=== PATIENT | female | born 1995 ===

== ENCOUNTER 2018-10-15 16:21 | Inpatient (IN) | payer MEDICAID ==
[2018-10-15] MEDS ORDERED: Sodium Chloride 0.9% 1,000 ML IV STA ×2 (17:09→21:30)
[2018-10-15 17:27] LABS: BASO # 0.1 K/uL (0.0-0.2); BASO % 0.5 % (0.0-2.0); EOS % 0.2 % (0.0-4.0); HEMOGLOBIN 12.7 g/dL (11.0-16.0); LYMPH # 1.5 K/uL (1.0-4.3); LYMPH % 13.8 % (20.0-40.0); MEAN CORPUSCULAR HEMOGLOBIN 23.8 pg (27.0-31.0); MEAN CORPUSCULAR HGB CONC 31.4 g/dL (33.0-37.0); MEAN PLATELET VOLUME 9.8 fL (7.2-11.7); MONO # 0.6 K/uL (0.0-0.8); MONO % 6.1 % (0.0-10.0); NEUT # 8.4 K/uL (1.8-7.0); NEUT % 79.4 % (50.0-75.0); RBC 5.32 Mil/uL (3.80-5.20); RED CELL DISTRIBUTION WIDTH 16.9 % (11.5-14.5); WHITE BLOOD COUNT 10.6 K/uL (4.8-10.8)
[2018-10-15 17:34] LABS: SQUAMOUS EPITHIAL 2 /hpf (0-5); URINE BACTERIA FEW (<OCC); URINE BILIRUBIN NEGATIVE (NEGATIVE); URINE BLOOD NEGATIVE (NEGATIVE); URINE CLARITY Hazy (Clear); URINE COLOR Yellow (YELLOW); URINE GLUCOSE (UA) NORMAL (Normal); URINE LEUKOCYTE ESTERASE 1+ Leu/uL (Negative); URINE PROTEIN NEGATIVE (NEGATIVE); URINE UROBILINOGEN NORMAL mg/dL (0.2-1.0)
[2018-10-15 17:38] LABS: HCG,QUALITATIVE URINE NEGATIVE (NEGATIVE)
[2018-10-15 17:40] LABS: ALB/GLOB RATIO 1.3 (1.0-2.1); ALBUMIN 5.1 g/dL (3.5-5.0); ALT/SGPT 958 U/L (9-52); AST/SGOT 618 U/L (14-36); BLOOD UREA NITROGEN 5 mg/dL (7-17); CALCIUM 9.9 mg/dl (8.6-10.4); GFR NON-AFRICAN AMERICAN > 60
[2018-10-15 18:06] LABS: LIPASE 19741 U/L (23-300)
--- NOTE | 2018-10-15 19:02 | C.PDOC ---
History Of Present Illness 23 year old female presents to the emergency department with complaints of upper abdominal pain and vomiting for the last three days. Patient denies fever and diarrhea. Patient is not actively vomiting in the ED. <Florence Marques - Last Filed: 10/15/18 19:09> History Per: Patient History/Exam Limitations: no limitations Onset/Duration Of Symptoms: Days (3) Current Symptoms Are (Timing): Still Present Location Of Pain/Discomfort: Other (upper abdomen) Associated Symptoms: Vomiting, Other (abdominal pain). denies: Fever, Diarrhea <Florence Marques - Last Filed: 10/15/18 19:09> <Robert Marie - Last Filed: 10/15/18 22:52> Time Seen by Provider: 10/15/18 16:34 Chief Complaint (Nursing): Abdominal Pain Past Medical History Reviewed: Historical Data, Nursing Documentation, Vital Signs Vital Signs: Last Vital Signs Temp 98.9 F 10/15/18 16:29 Pulse 89 10/15/18 16:29 Resp 18 10/15/18 16:29 BP 108/79 10/15/18 16:29 Pulse Ox 100 10/15/18 16:29 - Medical History PMH: No Chronic Diseases Surgical History: No Surg Hx Family History: States: No Known Family Hx - Social History Hx Alcohol Use: Yes Hx Substance Use: No - Immunization History Hx Tetanus Toxoid Vaccination: Yes Hx Influenza Vaccination: Yes Hx Pneumococcal Vaccination: No <Florence Marques - Last Filed: 10/15/18 19:09> Vital Signs: Last Vital Signs Temp 98.7 F 10/15/18 20:00 Pulse 69 10/15/18 20:00 Resp 14 10/15/18 20:00 BP 98/63 L 10/15/18 20:00 Pulse Ox 100 10/15/18 20:00 <Robert Marie - Last Filed: 10/15/18 22:52> Review Of Systems Except As Marked, All Systems Reviewed And Found Negative. Constitutional: Negative for: Fever Gastrointestinal: Positive for: Vomiting, Abdominal Pain. Negative for: Diarrhea <Florence Marques - Last Filed: 10/15/18 19:09> Physical Exam - Physical Exam Appears: Non-toxic, No Acute Distress Skin: Normal Color, Warm, Dry Head: Atraumatic, Normacephalic Eye(s): bilateral: Normal Inspection, PERRL, EOMI Oral Mucosa: Moist Neck: Normal, Supple Cardiovascular: Rhythm Regular, No Murmur Respiratory: Normal Breath Sounds, No Rales, No Rhonchi, No Wheezing Gastrointestinal/Abdominal: Soft, Tenderness (to epigastric area), No Guarding, No Rebound Extremity: Normal ROM Neurological/Psych: Oriented x3, Normal Speech, Normal Cognition <Florence Marques - Last Filed: 10/15/18 19:09> ED Course And Treatment - Laboratory Results Result Diagrams: 10/15/18 17:24 10/15/18 17:24 Lab Results: Total Bilirubin 3.1 mg/dL (0.2-1.3) H 10/15/18 17:24 AST 618 U/L (14-36) H 10/15/18 17:24 ALT 958 U/L (9-52) H 10/15/18 17:24 Alkaline Phosphatase 202 U/L (38-126) H 10/15/18 17:24 Total Protein 9.2 g/dL (6.3-8.3) H 10/15/18 17:24 Albumin 5.1 g/dL (3.5-5.0) H 10/15/18 17:24 Globulin 4.1 gm/dL (2.2-3.9) H 10/15/18 17:24 Albumin/Globulin Ratio 1.3 (1.0-2.1) 10/15/18 17:24 Lipase 00680 U/L (23-300) H 10/15/18 17:24 Urine Color Yellow (YELLOW) 10/15/18 17:24 Urine Clarity Hazy (Clear) 10/15/18 17:24 Urine pH 6.0 (5.0-8.0) 10/15/18 17:24 Ur Specific [place] 1.001 (1.003-1.030) L 10/15/18 17:24 Urine Protein Negative mg/dL (NEGATIVE) 10/15/18 17:24 Urine Glucose (UA) Normal mg/dL (Normal) 10/15/18 17:24 Urine Ketones Negative mg/dL (NEGATIVE) 10/15/18 17:24 Urine Blood Negative (NEGATIVE) 10/15/18 17:24 Urine Nitrate Negative (NEGATIVE) 10/15/18 17:24 Urine Bilirubin Negative (NEGATIVE) 10/15/18 17:24 Urine Urobilinogen Normal mg/dL (0.2-1.0) 10/15/18 17:24 Ur Leukocyte Esterase 1+ Gen[place]/uL (Negative) H 10/15/18 17:24 Urine WBC (Auto) 5 /hpf (0-5) 10/15/18 17:24 Urine RBC (Auto) 1 /hpf (0-3) 10/15/18 17:24 Ur Squamous Epith Cells 2 /hpf (0-5) 10/15/18 17:24 Urine Bacteria Few (<OCC) H 10/15/18 17:24 Urine HCG, Qual Negative (NEGATIVE) 10/15/18 17:24 Urine HCG, Qual Negative (NEGATIVE) 10/15/18 17:24 O2 Sat by Pulse Oximetry: 100 (RA) Pulse Ox Interpretation: Normal <Florence Marques - Last Filed: 10/15/18 19:09> - Laboratory Results Result Diagrams: 10/15/18 17:24 10/15/18 17:24 Lab Results: Total Bilirubin 3.1 mg/dL (0.2-1.3) H 10/15/18 17:24 AST 618 U/L (14-36) H 10/15/18 17:24 ALT 958 U/L (9-52) H 10/15/18 17:24 Alkaline Phosphatase 202 U/L (38-126) H 10/15/18 17:24 Total Protein 9.2 g/dL (6.3-8.3) H 10/15/18 17:24 Albumin 5.1 g/dL (3.5-5.0) H 10/15/18 17:24 Globulin 4.1 gm/dL (2.2-3.9) H 10/15/18 17:24 Albumin/Globulin Ratio 1.3 (1.0-2.1) 10/15/18 17:24 Lipase 82041 U/L (23-300) H 10/15/18 17:24 Urine Color Yellow (YELLOW) 10/15/18 17:24 Urine Clarity Hazy (Clear) 10/15/18 17:24 Urine pH 6.0 (5.0-8.0) 10/15/18 17:24 Ur Specific [place] 1.001 (1.003-1.030) L 10/15/18 17:24 Urine Protein Negative mg/dL (NEGATIVE) 10/15/18 17:24 Urine Glucose (UA) Normal mg/dL (Normal) 10/15/18 17:24 Urine Ketones Negative mg/dL (NEGATIVE) 10/15/18 17:24 Urine Blood Negative (NEGATIVE) 10/15/18 17:24 Urine Nitrate Negative (NEGATIVE) 10/15/18 17:24 Urine Bilirubin Negative (NEGATIVE) 10/15/18 17:24 Urine Urobilinogen Normal mg/dL (0.2-1.0) 10/15/18 17:24 Ur Leukocyte Esterase 1+ [place]/uL (Negative) H 10/15/18 17:24 Urine WBC (Auto) 5 /hpf (0-5) 10/15/18 17:24 Urine RBC (Auto) 1 /hpf (0-3) 10/15/18 17:24 Ur Squamous Epith Cells 2 /hpf (0-5) 10/15/18 17:24 Urine Bacteria Few (<OCC) H 10/15/18 17:24 Urine HCG, Qual Negative (NEGATIVE) 10/15/18 17:24 Urine HCG, Qual Negative (NEGATIVE) 10/15/18 17:24 - CT Scan/US US abdomen Other Rad Studies (CT/US): Read By Radiologist, Radiology Report Reviewed CT/US Interpretation: Impression: Numerous gallstones present within the gallbladder. Slightly prominent distal common bile duct. Clinical correlation advised. <Robert Marie - Last Filed: 10/15/18 22:52> Medical Decision Making Medical Decision Making: Plan: CMP Lipase CBC Protonix 40mg IVP NaCl IV Fluids Zofran 4mg IVP HCG Qualitative Urine US Abdomen Patient with high lipase and elevated liver function. <Florence Marques - Last Filed: 10/15/18 19:09> Medical Decision Making: SAMM chatman. Dr. Garcia accepts patient to hospitalist service. <Robert Marie - Last Filed: 10/15/18 22:52> Disposition - Disposition Disposition Time: 19:09 <Florence Marques - Last Filed: 10/15/18 19:09> <Robert Marie - Last Filed: 10/15/18 22:52> - Disposition Disposition: HOSPITALIZED Condition: FAIR - Clinical Impression Clinical Impression: Abdominal pain, Pancreatitis, Gallstone pancreatitis - PA / CHEMICAL TEST ENGINEER / Resident Statement MD/DO has reviewed & agrees with the documentation as recorded. - Scribe Statement The provider has reviewed the documentation as recorded by the Scribe (Felton Thompson) All medical record entries made by the Scribe were at my direction and pe rsonally dictated by me. I have reviewed the chart and agree that the record accurately reflects my personal performance of the history, physical exam, medical decision making, and the department course for this patient. I have also personally directed, reviewed, and agree with the discharge instructions and disposition. <Florence Marques - Last Filed: 10/15/18 19:09> Physician Patient Turnover Patient Signed Over To: Robert Marie Handoff Comments: pending abdominal US and dispo <Florence Marques - Last Filed: 10/15/18 19:09>
--- NOTE | 2018-10-15 21:27 | CP.PCM.HP ---
<CresencioRichie - Last Filed: 10/16/18 00:54> History of Present Illness - History of Present Illness History of Present Illness: PGY-1 History and Physical [address] Dr[address] Garcia Patient is a 23 year old female with no past significant medical history presenting to ED with worsening upper abdominal pain and vomiting for the past 3 days. Pain is located primarily in the epigastric and RUQ regions, worsened with food, and associated with nausea and NBNB vomiting. No fevers/chills, headaches, dizziness, chest pain, palpitations, sob, cough, diarrhea/constipation, dysuria. 12 pt ROS reviewed and otherwise negative. PMHx: denies PSHx: denies Allergies: NKDA Home Meds: denies Social Hx: social drinker, denies any tobacco or illicit drug use Family Hx: denies PMD: none Present on Admission - Present on Admission Any Indicators Present on Admission: No Review of Systems - Review of Systems All systems: reviewed and no additional remarkable complaints except Review of Systems: as per HPI Past Patient History - Past Social History Smoking Status: Never Smoked - PSYCHIATRIC Hx Substance Use: No - SURGICAL HISTORY Hx Surgeries: No - ANESTHESIA Hx Anesthesia: No Meds Allergies/Adverse Reactions: Allergies Allergy/AdvReac Type Severity Reaction Status Date / Time No Known Allergies Allergy Unverified 10/15/18 16:31 Physical Exam - Constitutional Appears: Non-toxic, No Acute Distress - Head Exam Head Exam: ATRAUMATIC, NORMAL INSPECTION, NORMOCEPHALIC - Eye Exam Eye Exam: EOMI, Normal appearance, PERRL Pupil Exam: NORMAL ACCOMODATION - ENT Exam ENT Exam: Mucous Membranes Moist, Normal Exam - Neck Exam Neck exam: Positive for: Full Rom, Normal Inspection. Negative for: Tenderness - Respiratory Exam Respiratory Exam: Clear to Auscultation Bilateral, NORMAL BREATHING PATTERN. absent: Accessory Muscle Use, Rales, Rhonchi, Wheezes, Respiratory Distress, Stridor - Cardiovascular Exam Cardiovascular Exam: REGULAR RHYTHM, +S1, +S2 - GI/Abdominal Exam GI & Abdominal Exam: Normal Bowel Sounds, Soft, Tenderness (epigastric, RUQ). absent: Distended, Firm, Guarding, Rebound, Rigid - Extremities Exam Extremities exam: Positive for: normal capillary refill, normal inspection, pedal pulses present. Negative for: calf tenderness, joint swelling, pedal edema - Back Exam Back exam: NORMAL INSPECTION - Neurological Exam Neurological exam: Alert, CN II-XII Intact, Oriented x3 - Psychiatric Exam Psychiatric exam: Normal Affect, Normal Mood - Skin Skin Exam: Dry, Intact, Normal Color, Warm Results - Vital Signs Recent Vital Signs: Last Vital Signs Temp 98.7 F 10/15/18 20:00 Pulse 69 10/15/18 20:00 Resp 14 10/15/18 20:00 BP 98/63 L 10/15/18 20:00 Pulse Ox 100 10/15/18 20:00 - Labs Result Diagrams: 10/15/18 17:24 10/15/18 17:24 Labs: Laboratory Results - last 24 hr 10/15/18 10/15/18 10/15/18 17:24 17:24 17:24 WBC 10.6 RBC 5.32 H Hgb 12.7 Hct 40.4 MCV 76.0 L MCH 23.8 L MCHC 31.4 L RDW 16.9 H Plt Count 370 MPV 9.8 Neut % (Auto) 79.4 H Lymph % (Auto) 13.8 L [place] % (Auto) 6.1 Eos % (Auto) 0.2 Baso % (Auto) 0.5 Neut # (Auto) 8.4 H Lymph # (Auto) 1.5 [place] # (Auto) 0.6 Eos # (Auto) 0.0 Baso # (Auto) 0.1 Sodium 140 Potassium 4.2 Chloride 98 Carbon Dioxide 30 Anion Gap 16 BUN 5 L Creatinine 0.4 L Est GFR ( Amer) > 60 Est GFR (Non-Af Amer) > 60 Random Glucose 118 H Calcium 9.9 Total Bilirubin 3.1 H AST 618 H ALT 958 H Alkaline Phosphatase 202 H Total Protein 9.2 H Albumin 5.1 H Globulin 4.1 H Albumin/Globulin Ratio 1.3 Lipase 49235 H Urine Color Yellow Urine Clarity Hazy Urine pH 6.0 Ur Specific [place] 1.001 L Urine Protein Negative Urine Glucose (UA) Normal Urine Ketones Negative Urine Blood Negative Urine Nitrate Negative Urine Bilirubin Negative Urine Urobilinogen Normal Ur Leukocyte Esterase 1+ H Urine WBC (Auto) 5 Urine RBC (Auto) 1 Ur Squamous Epith Cells 2 Urine Bacteria Few H Urine HCG, Qual Negative Assessment & Plan - Assessment and Plan (Free Text) Assessment: 23 year old F with no PMHx presenting to ED with worsening epigastric and RUQ abdominal pain with associated n/v x 3 days. Abdominal u/s reveals numerous gallstones, mildly dilated distal CBD. Lipase level signficantly elevated. Plan: Gallstone pancreatitis -TTP epigastric region with radiation to back -Lipase 19,741 (> 3x upper limit of normal) -Abd u/s demonstrates numerous gallstones in gallbladder with no evidence of wall thickening or pericholecystic fluid. Distal CBD slightly enlarged @ 0.6 cm. -s/p zofran, protonix, NS bolus in ED -GI (Dr. Colin) consulted -General surgery (Dr. Yamila Anderson) consulted -NS @ 125 cc/hr -zofran 4 mg IV q4 prn for nausea -morphine 2 mg q4 prn for pain -rocephin 1 gm daily -NPO PPx, Diet, Disposition -DVT ppx: scds -GI ppx: protonix 40 mg IV daily -Diet: NPO Case discussed with Dr. Radha Dupont DO, PGY-1 <Curtis Garcia P - Last Filed: 10/17/18 08:23> Results - Vital Signs Recent Vital Signs: Last Vital Signs Temp 98.0 F 10/17/18 07:44 Pulse 78 10/17/18 07:44 Resp 20 10/17/18 07:44 BP 96/59 L 10/17/18 07:44 Pulse Ox 98 10/17/18 07:44 - Labs Result Diagrams: 10/17/18 07:10 10/15/18 17:24 Labs: Laboratory Results - last 24 hr 10/17/18 10/17/18 07:10 07:10 WBC 8.1 RBC 4.63 Hgb 11.0 Hct 35.1 MCV 75.8 L MCH 23.9 L MCHC 31.5 L RDW 17.1 H Plt Count 312 MPV 10.3 Neut % (Auto) 66.3 Lymph % (Auto) 26.1 Dixon % (Auto) 6.1 Eos % (Auto) 1.0 Baso % (Auto) 0.5 Neut # (Auto) 5.4 Lymph # (Auto) 2.1 Dixon # (Auto) 0.5 Eos # (Auto) 0.1 Baso # (Auto) 0.0 Iron 92 TIBC 434 % Saturation 21 Attending/Attestation - Attestation I have personally seen and examined this patient.: Yes I have fully participated in the care of the patient.: Yes I have reviewed all pertinent clinical information: Yes Notes (Text): 10/17/18 08:23 Patient assessed with resident, agree with documentation, assessment and plan.
[2018-10-15] MEDS: Sodium Chloride 0.9% 1,000 ML IV SCH (21:58)
--- NOTE | 2018-10-16 03:06 | CP.PCM.CON ---
History of Present Illness - History of Present Illness History of Present Illness: General Surgery Dr. Anderson 23 y/o F w/ no PMHx presents to the ED c/o RUQ/epigastric pain. Pt states pain started ~3 days [employer]. Pain has been constant, localized to RUQ/epigastric region w/ no radiation to back or shoulders. Nothing made the pain better or worse. Pt denies having similar pain in the past. Pt admits to concurrent N/V, but denies F/C, D/C. Pt also notes dark urine w/ onset of pain but denies dysuria. In the ED, labs revealed transaminitis, hyperbilirubinemia, and elevated lipase. Abd US showed contracted GB w/ multiple stones, CBD 6mm, no PCCF, (-)Berino sign. PMHx: denies Meds: none NKDA PSHx: denies SHx: social EtOH; denies tobacco/drug use FHx: father-cholelithiasis Review of Systems - Review of Systems All systems: reviewed and no additional remarkable complaints except (see HPI) Past Patient History - Past Medical History & Family History Past Medical History?: No - Past Social History Smoking Status: Never Smoked - MUSCULOSKELETAL/RHEUMATOLOGICAL Hx Falls: No - PSYCHIATRIC Hx Substance Use: No - SURGICAL HISTORY Hx Surgeries: No - ANESTHESIA Hx Anesthesia: No Meds Allergies/Adverse Reactions: Allergies Allergy/AdvReac Type Severity Reaction Status Date / Time No Known Allergies Allergy Unverified 10/15/18 16:31 - Medications Medications: Current Medications Sodium Chloride (Sodium Chloride 0.9%) 1,000 mls @ 125 mls/hr IV .Q8H [facility] Last Admin: 10/15/18 21:58 Dose: Not Given Ceftriaxone Sodium 1 gm/ (Sodium Chloride) 100 mls @ 100 mls/hr IVPB DAILY [facility]; Protocol Influenza Virus Vaccine (Flucelvax Quad [id number] Syr) 60 mcg IM .ONCE ONE Stop: 10/18/18 10:01 Morphine Sulfate (Morphine) 2 mg IVP Q4 PRN PRN Reason: Pain, moderate (4-7) Ondansetron HCl (Zofran Inj) 4 mg IVP Q4H PRN PRN Reason: Nausea/Vomiting Pantoprazole Sodium (Protonix Inj) 40 mg IVP DAILY [facility] Pneumococcal Polyvalent Vaccine (Pneumovax 23 Vaccine) 0.5 ml IM .ONCE ONE Stop: 10/18/18 10:01 Physical Exam - Constitutional Appears: Non-toxic, No Acute Distress - Head Exam Head Exam: NORMAL INSPECTION - Eye Exam Eye Exam: Normal appearance - ENT Exam ENT Exam: Mucous Membranes Moist Additional comments: sublingual jaundice - Respiratory Exam Respiratory Exam: NORMAL BREATHING PATTERN. absent: Accessory Muscle Use, Respiratory Distress - Cardiovascular Exam Cardiovascular Exam: REGULAR RHYTHM. absent: Bradycardia, Tachycardia - GI/Abdominal Exam GI & Abdominal Exam: Soft, Tenderness (minimal TTP epigastrium). absent: Distended, Firm, Guarding, Rebound - Expanded GI/Abdominal Exam Expanded Expanded GI & Abdominal Exam: absent: Mccall's Sign - Extremities Exam Extremities exam: Positive for: normal inspection - Neurological Exam Neurological exam: Alert, Oriented x3 - Psychiatric Exam Psychiatric exam: Normal Affect, Normal Mood - Skin Skin Exam: Dry, Intact, Warm Results - Vital Signs Recent Vital Signs: Last Vital Signs Temp 98.1 F 10/16/18 00:00 Pulse 72 10/16/18 00:00 Resp 20 10/16/18 00:00 BP 102/67 10/16/18 00:00 Pulse Ox 99 10/16/18 00:00 - Labs Result Diagrams: 10/15/18 17:24 10/15/18 17:24 Labs: Laboratory Results - last 24 hr 10/15/18 10/15/18 10/15/18 17:24 17:24 17:24 WBC 10.6 RBC 5.32 H Hgb 12.7 Hct 40.4 MCV 76.0 L MCH 23.8 L MCHC 31.4 L RDW 16.9 H Plt Count 370 MPV 9.8 Neut % (Auto) 79.4 H Lymph % (Auto) 13.8 L [place] % (Auto) 6.1 Eos % (Auto) 0.2 Baso % (Auto) 0.5 Neut # (Auto) 8.4 H Lymph # (Auto) 1.5 [place] # (Auto) 0.6 Eos # (Auto) 0.0 Baso # (Auto) 0.1 Sodium 140 Potassium 4.2 Chloride 98 Carbon Dioxide 30 Anion Gap 16 BUN 5 L Creatinine 0.4 L Est GFR ( Amer) > 60 Est GFR (Non-Af Amer) > 60 Random Glucose 118 H Calcium 9.9 Total Bilirubin 3.1 H AST 618 H ALT 958 H Alkaline Phosphatase 202 H Lactate Dehydrogenase Total Protein 9.2 H Albumin 5.1 H Globulin 4.1 H Albumin/Globulin Ratio 1.3 Lipase 34489 H Urine Color Yellow Urine Clarity Hazy Urine pH 6.0 Ur Specific [place] 1.001 L Urine Protein Negative Urine Glucose (UA) Normal Urine Ketones Negative Urine Blood Negative Urine Nitrate Negative Urine Bilirubin Negative Urine Urobilinogen Normal Ur Leukocyte Esterase 1+ H Urine WBC (Auto) 5 Urine RBC (Auto) 1 Ur Squamous Epith Cells 2 Urine Bacteria Few H Urine HCG, Qual Negative 10/15/18 21:33 WBC RBC Hgb Hct MCV MCH MCHC RDW Plt Count MPV Neut % (Auto) Lymph % (Auto) [place] % (Auto) Eos % (Auto) Baso % (Auto) Neut # (Auto) Lymph # (Auto) [place] # (Auto) Eos # (Auto) Baso # (Auto) Sodium Potassium Chloride Carbon Dioxide Anion Gap BUN Creatinine Est GFR ( Amer) Est GFR (Non-Af Amer) Random Glucose Calcium Total Bilirubin AST ALT Alkaline Phosphatase Lactate Dehydrogenase 1500 H Total Protein Albumin Globulin Albumin/Globulin Ratio Lipase Urine Color Urine Clarity Urine pH Ur Specific [place] Urine Protein Urine Glucose (UA) Urine Ketones Urine Blood Urine Nitrate Urine Bilirubin Urine Urobilinogen Ur Leukocyte Esterase Urine WBC (Auto) Urine RBC (Auto) Ur Squamous Epith Cells Urine Bacteria Urine HCG, Qual - Imaging and Cardiology US - abdomen Status: Image reviewed by me, Report reviewed by me Assessment & Plan - Assessment and Plan (Free Text) Assessment: 23 y/o F w/ gallstone pancreatitis Plan: - f/u AM labs - CLD - pain management - anti-emetic - f/u GI recs - recommend ERCP +/- MRCP - encourage OOB to chair/Amb Will discuss w/ Dr. Justin Guajardo DO PGY3
[2018-10-16] MEDS: Sodium Chloride 0.9% 1,000 ML IV SCH ×6 (05:48→23:12)
[2018-10-16 07:45] LABS: BASO # 0.1 K/uL (0.0-0.2); EOS # 0.1 K/uL (0.0-0.7); LYMPH # 1.8 K/uL (1.0-4.3); LYMPH % 28.3 % (20.0-40.0); MEAN CORPUSCULAR HEMOGLOBIN 23.4 pg (27.0-31.0); MEAN CORPUSCULAR HGB CONC 30.7 g/dL (33.0-37.0); MEAN PLATELET VOLUME 9.7 fL (7.2-11.7); MONO # 0.5 K/uL (0.0-0.8); NEUT # 3.8 K/uL (1.8-7.0); NEUT % 61.7 % (50.0-75.0); NRBC % 0.1 % (0.0-2.0); RBC 4.57 Mil/uL (3.80-5.20); RED CELL DISTRIBUTION WIDTH 16.9 % (11.5-14.5); WHITE BLOOD COUNT 6.2 K/uL (4.8-10.8)
[2018-10-16 07:53] LABS: ALB/GLOB RATIO 1.4 (1.0-2.1); ALBUMIN 3.4 g/dL (3.5-5.0); BILIRUBIN,DIRECT 1.6 mg/dL (0.0-0.4)
[2018-10-16 07:59] LABS: HEMOGLOBIN 10.7 g/dL (11.0-16.0)
--- NOTE | 2018-10-16 08:08 | CP.PCM.PN ---
<Arline Laws - Last Filed: 10/16/18 14:53> Subjective - Date & Time of Evaluation Date of Evaluation: 10/16/18 Time of Evaluation: 08:08 - Subjective Subjective: Progress note for Hospitalist service Patient seen and examined at bedside. She states that her abdominal pain has improved from last night, but still present in the epigastric region. She has not had any episodes of vomiting since her admission here. She denies fevers, chills, headache, dizziness, chest pain, shortness of breath, palpitations, constipation, diarrhea, urinary discomfort, leg pain. She states she is thirsty and would like to have something to drink. Objective - Vital Signs/Intake and Output Vital Signs (last 24 hours): Temp Pulse Resp BP Pulse Ox 98.1 F 72 20 102/67 99 10/16/18 00:00 10/16/18 00:00 10/16/18 00:00 10/16/18 00:00 10/16/18 00:00 Intake and Output: 10/16/18 10/16/18 06:59 18:59 Intake Total 1000 Balance 1000 - Medications Medications: Current Medications Ceftriaxone Sodium 1 gm/ (Sodium Chloride) 100 mls @ 100 mls/hr IVPB DAILY [facility]; Protocol Sodium Chloride (Sodium Chloride 0.9%) 1,000 mls @ 200 mls/hr IV .Q5H [facility] Influenza Virus Vaccine (Flucelvax Quad 1667-6061 Syr) 60 mcg IM .ONCE ONE Stop: 10/18/18 10:01 Morphine Sulfate (Morphine) 2 mg IVP Q4 PRN PRN Reason: Pain, moderate (4-7) Ondansetron HCl (Zofran Inj) 4 mg IVP Q4H PRN PRN Reason: Nausea/Vomiting Pantoprazole Sodium (Protonix Inj) 40 mg IVP DAILY [facility] Pneumococcal Polyvalent Vaccine (Pneumovax 23 Vaccine) 0.5 ml IM .ONCE ONE Stop: 10/18/18 10:01 - Labs Labs: 10/16/18 07:23 10/15/18 17:24 - Constitutional Appears: Well, No Acute Distress - Head Exam Head Exam: ATRAUMATIC, NORMOCEPHALIC - Eye Exam Eye Exam: EOMI, PERRL - ENT Exam ENT Exam: Mucous Membranes Moist - Respiratory Exam Respiratory Exam: Clear to Ausculation Bilateral, NORMAL BREATHING PATTERN. absent: Rales, Rhonchi, Wheezes, Respiratory Distress, Stridor - Cardiovascular Exam Cardiovascular Exam: REGULAR RHYTHM, +S1, +S2. absent: Gallop, Rubs - GI/Abdominal Exam GI & Abdominal Exam: Soft, Tenderness (Minimal epigastric), Normal Bowel Sounds. absent: Distended, Firm, Guarding, Rigid, Organomegaly - Extremities Exam Extremities Exam: Normal Capillary Refill. absent: Calf Tenderness, Pedal Edema - Back Exam Back Exam: absent: CVA tenderness (L), CVA tenderness (R) - Neurological Exam Neurological Exam: Alert, Awake, Oriented x3 - Psychiatric Exam Psychiatric exam: Normal Affect, Normal Mood - Skin Skin Exam: Dry, Intact, Warm Assessment and Plan - Assessment and Plan (Free Text) Assessment: 23 year old female with no medical history presenting to ED with worsening epigastric and RUQ abdominal pain with associated nausea, vomiting x 3 days. Abdominal u/s reveals numerous gallstones, mildly dilated distal CBD. Lipase level signficantly elevated. Plan: Gallstone pancreatitis LFTs, T. bili downtrending Abdominal US: numerous gallstones in gallbladder. Slightly prominent distal common bile duct. Surgery Dr. Yamila Anderson consulted, help appreciated Plan for surgery on 10/18/[address] Colin consulted, help appreciated NS @ 200cc/hr IV MRCP 10/17/18 Rocephin 1g IV daily Morphine 2mg Q4 PRN Zofran 4mg Q4 PRN NPO Abnormal RBC indices LMP 10/09/18 - 3 days of bleeding, regular periods. MCV 76 MCH 23.4 MCHC 30.7 RDW 16.9 Iron studies ordered. Prophylaxis DVT: SCDs GI: Protonix 40mg IV NPO diet Case discussed with Dr. Warren Laws, PGY1 <Warren Anderson - Last Filed: 10/16/18 15:29> Objective - Vital Signs/Intake and Output Vital Signs (last 24 hours): Temp Pulse Resp BP Pulse Ox 97.9 F 86 20 99/66 L 98 10/16/18 08:14 10/16/18 08:14 10/16/18 08:14 10/16/18 08:14 10/16/18 08:14 Intake and Output: 10/16/18 10/16/18 06:59 18:59 Intake Total 1999 Balance 1999 - Medications Medications: Current Medications Ceftriaxone Sodium 1 gm/ (Sodium Chloride) 100 mls @ 100 mls/hr IVPB DAILY [facility]; Protocol Last Admin: 10/16/18 09:57 Dose: 100 mls/hr Sodium Chloride (Sodium Chloride 0.9%) 1,000 mls @ 200 mls/hr IV .Q5H [facility] Last Admin: 10/16/18 12:16 Dose: Not Given Influenza Virus Vaccine (Flucelvax Quad [id number] Syr) 60 mcg IM .ONCE ONE Stop: 10/18/18 10:01 Morphine Sulfate (Morphine) 2 mg IVP Q4 PRN PRN Reason: Pain, moderate (4-7) Ondansetron HCl (Zofran Inj) 4 mg IVP Q4H PRN PRN Reason: Nausea/Vomiting Pantoprazole Sodium (Protonix Inj) 40 mg IVP DAILY [facility] Last Admin: 10/16/18 09:57 Dose: 40 mg Pneumococcal Polyvalent Vaccine (Pneumovax 23 Vaccine) 0.5 ml IM .ONCE ONE Stop: 10/18/18 10:01 - Labs Labs: 10/16/18 07:23 10/15/18 17:24 Attending/Attestation - Attestation I have personally seen and examined this patient.: Yes I have fully participated in the care of the patient.: Yes I have reviewed all pertinent clinical information, including history, physical exam and plan: Yes Notes (Text): 10/16/18 15:26 Patient was seen and examined at 11:30 AM 10/16/18. Care of this patient was gone over with resident Dr. Laws. F/U MRCP performance 10/17/18 to see if there is any gallstone in the CBD. However, since the LFTs are decreasing, patient likely has passed stone. If there is still gallstone present, then consider ERCP at [facility] and this is the case, then this should be arranged by GI Dr. Colin. Explained to patient (with the help of patient's Nurse Yuki who translated Bhutanese) that plan of care would be decided upon based upon results of MRCP. Spoke with Surgical Residen Dr. Robb: patient for OR for cholecystectomy on Wednesday10/18/18 F/U PT/PTT/INR and EKG for morning 10/17/18 Warren Anderson D.O.
--- NOTE | 2018-10-16 15:59 | US ---
Date of service: 10/15/2018 HISTORY: upper abd pain COMPARISON: None. TECHNIQUE: Sonographic evaluation of the right upper quadrant of the abdomen. FINDINGS: LIVER: Measures 13.5 cm in length. Normal echogenicity of the liver parenchyma. No mass. No intrahepatic bile duct dilatation. GALLBLADDER: Extensive cholelithiasis. No mural thickening. No pericholecystic fluid. Negative sonographic Mccall sign. COMMON BILE DUCT: Measures 6 mm. No stones. No dilatation. PANCREAS: Unremarkable as visualized. No mass. No ductal dilatation. RIGHT KIDNEY: Measures 10.1 cm in length. Normal echogenicity. No calculus, mass, or hydronephrosis. AORTA: No aneurysmal dilatation. IVC: Unremarkable. OTHER FINDINGS: None . IMPRESSION: Cholelithiasis without sonographic evidence of cholecystitis. Otherwise unremarkable. The preliminary findings for this examination were reported by [facility] at 7:19 p.m. on 10/15/2018. There is concurrence of this report with the preliminary findings.
[2018-10-17] MEDS: Sodium Chloride 0.9% 1,000 ML IV SCH ×4 (03:52→19:24)
[2018-10-17 07:32] LABS: BASO % 0.5 % (0.0-2.0); EOS # 0.1 K/uL (0.0-0.7); LYMPH # 2.1 K/uL (1.0-4.3); LYMPH % 26.1 % (20.0-40.0); MEAN CELL VOLUME 75.8 fL (81.0-99.0); MEAN CORPUSCULAR HEMOGLOBIN 23.9 pg (27.0-31.0); MEAN CORPUSCULAR HGB CONC 31.5 g/dL (33.0-37.0); MEAN PLATELET VOLUME 10.3 fL (7.2-11.7); MONO # 0.5 K/uL (0.0-0.8); MONO % 6.1 % (0.0-10.0); NEUT # 5.4 K/uL (1.8-7.0); NEUT % 66.3 % (50.0-75.0); NRBC % 0.1 % (0.0-2.0); RBC 4.63 Mil/uL (3.80-5.20); RED CELL DISTRIBUTION WIDTH 17.1 % (11.5-14.5); WHITE BLOOD COUNT 8.1 K/uL (4.8-10.8)
[2018-10-17 07:43] LABS: IRON 92 ug/dL (37-170)
[2018-10-17 07:52] LABS: % IRON SATURATION 21 (20-55); TOTAL IRON BINDING CAPACITY 434 ug/dL (250-450)
--- NOTE | 2018-10-17 07:58 | CP.PCM.PN ---
<Lefty Ansari - Last Filed: 10/17/18 17:10> Subjective - Date & Time of Evaluation Date of Evaluation: 10/17/18 Time of Evaluation: 08:00 - Subjective Subjective: PGY1 medicine progress note for Dr. Hernandez Patient seen and examined at bedside. She states that her abdominal continues to improve, but still reports some epigastric pain. She denies fevers, chills, headache, dizziness, chest pain, shortness of breath, palpitations, constipation, diarrhea, vomiting, urinary discomfort, leg pain. Pt informed of plan of care, and she agrees. Objective - Vital Signs/Intake and Output Vital Signs (last 24 hours): Temp Pulse Resp BP Pulse Ox 98.0 F 78 20 96/59 L 98 10/17/18 07:44 10/17/18 07:44 10/17/18 07:44 10/17/18 07:44 10/17/18 07:44 Intake and Output: 10/17/18 10/17/18 06:59 18:59 Intake Total 3200 Balance 3200 - Medications Medications: Current Medications Ceftriaxone Sodium 1 gm/ (Sodium Chloride) 100 mls @ 100 mls/hr IVPB DAILY [facility]; Protocol Last Admin: 10/16/18 09:57 Dose: 100 mls/hr Sodium Chloride (Sodium Chloride 0.9%) 1,000 mls @ 200 mls/hr IV .Q5H [facility] Last Admin: 10/17/18 03:52 Dose: 200 mls/hr Influenza Virus Vaccine (Flucelvax Quad [id number] Syr) 60 mcg IM .ONCE ONE Stop: 10/18/18 10:01 Morphine Sulfate (Morphine) 2 mg IVP Q4 PRN PRN Reason: Pain, moderate (4-7) Ondansetron HCl (Zofran Inj) 4 mg IVP Q4H PRN PRN Reason: Nausea/Vomiting Pantoprazole Sodium (Protonix Inj) 40 mg IVP DAILY [facility] Last Admin: 10/16/18 09:57 Dose: 40 mg Pneumococcal Polyvalent Vaccine (Pneumovax 23 Vaccine) 0.5 ml IM .ONCE ONE Stop: 10/18/18 10:01 - Labs Labs: 10/17/18 07:10 10/15/18 17:24 - Head Exam Head Exam: ATRAUMATIC, NORMAL INSPECTION - Eye Exam Eye Exam: EOMI, Normal appearance - ENT Exam ENT Exam: Mucous Membranes Moist - Neck Exam Neck Exam: Normal Inspection - Respiratory Exam Respiratory Exam: Clear to Ausculation Bilateral. absent: Rales, Rhonchi, Wheezes - Cardiovascular Exam Cardiovascular Exam: REGULAR RHYTHM, +S1, +S2 - GI/Abdominal Exam GI & Abdominal Exam: Soft, Tenderness (mild eipgastric tenderness, mild luq tenderness), Normal Bowel Sounds. absent: Distended, Guarding, Rigid Additional comments: no trevizo's sign - Extremities Exam Extremities Exam: Normal Capillary Refill, Normal Inspection. absent: Calf Tenderness, Pedal Edema - Back Exam Back Exam: NORMAL INSPECTION - Neurological Exam Neurological Exam: Alert, Awake - Psychiatric Exam Psychiatric exam: Normal Affect, Normal Mood - Skin Skin Exam: Dry, Normal Color, Warm Assessment and Plan - Assessment and Plan (Free Text) Assessment: 23 year old female with no medical history presenting to ED with worsening epigastric and RUQ abdominal pain with associated nausea, vomiting x 3 days. Abdominal u/s reveals numerous gallstones, mildly dilated distal CBD. Lipase level significantly elevated. Plan: Cholelithiasis, with resolving pancreatitis LFTs, T. bili downtrending Lipase is 346, down from Abdominal US: numerous gallstones in gallbladder. Slightly prominent distal common bile duct. Surgery Dr. Yamila Anderson consulted, help appreciated Plan for surgery on 10/18/[address] Colin consulted, help appreciated NS @ 125cc/hr IV MRCP 10/17/18 shows cholelithiasis without evidence of cholecystitis. No evidence of biliary obstruction. No evidence of choledocholithiasis. Rocephin 1g IV daily Morphine 2mg Q4 PRN Zofran 4mg Q4 PRN NPO Abnormal RBC indices LMP 10/09/18 - 3 days of bleeding, regular periods. MCV 76 MCH 23.4 MCHC 30.7 RDW 16.9 Iron, TIBC, iron % sat, ferritin are normal Continue to monitor Prophylaxis DVT: SCDs GI: Protonix 40mg IV NPO diet Dispo: Plan for OR tomorrow for laparoscopic cholecystectomy, possible IOC Case discussed with Dr. Hernandez. <Chanelle Hernandez V - Last Filed: 10/17/18 18:12> Objective - Vital Signs/Intake and Output Vital Signs (last 24 hours): Temp Pulse Resp BP Pulse Ox 98.4 F 80 20 101/66 100 10/17/18 16:00 10/17/18 16:00 10/17/18 16:00 10/17/18 16:00 10/17/18 16:00 Intake and Output: 10/17/18 10/17/18 06:59 18:59 Intake Total 3200 1000 Balance 3200 1000 - Medications Medications: Current Medications Ceftriaxone Sodium 1 gm/ (Sodium Chloride) 100 mls @ 100 mls/hr IVPB DAILY [facility]; Protocol Last Admin: 10/17/18 11:30 Dose: 100 mls/hr Sodium Chloride (Sodium Chloride 0.9%) 1,000 mls @ 125 mls/hr IV .Q8H [facility] Last Admin: 10/17/18 13:20 Dose: Not Given Influenza Virus Vaccine (Flucelvax Quad 5307-5712 Syr) 60 mcg IM .ONCE ONE Stop: 10/18/18 10:01 Morphine Sulfate (Morphine) 2 mg IVP Q4 PRN PRN Reason: Pain, moderate (4-7) Ondansetron HCl (Zofran Inj) 4 mg IVP Q4H PRN PRN Reason: Nausea/Vomiting Pantoprazole Sodium (Protonix Inj) 40 mg IVP DAILY [facility] Last Admin: 10/17/18 10:14 Dose: 40 mg Pneumococcal Polyvalent Vaccine (Pneumovax 23 Vaccine) 0.5 ml IM .ONCE ONE Stop: 10/18/18 10:01 - Labs Labs: 10/17/18 07:10 10/17/18 07:10 PT 13.3 SECONDS (9.7-12.2) H 10/17/18 07:10 INR 1.2 10/17/18 07:10 APTT 37 SECONDS (21-34) H 10/17/18 07:10 Attending/Attestation - Attestation I have personally seen and examined this patient.: Yes I have fully participated in the care of the patient.: Yes I have reviewed all pertinent clinical information, including history, physical exam and plan: Yes Notes (Text): This is a [id number]-old female with no prior past medical history who i nitially presented to the ED with worsening upper abdominal pain and associated vomiting for at least 3 days. GI and general surgery on board. On admission patient does have a significant LDH of 1500, lipase of 19,741 as well as transaminitis 618 and 958 respectively and associated elevated T bili suspected for gallstone pancreatitis. 1. Gallstone pancreatitis Cholelithiasis Assessment/plan * Normal saline at 125 cc/h * General surgery on board help appreciated * Surgery is planning for lap cholecystectomy with possible intraoperative cholangiogram. For tomorrow. * GI on board help appreciated * Liver function tests have significantly improved, lipase has improved * Abdominal ultrasound from October 16 impression noted cholelithiasis without sonographic evidence of cholecystitis. Noted common bile duct but 6 mm. No stones. No dilatation. * MRCP completed October 17, 2018 noted for cholelithiasis without evidence of cholecystitis. No evidence of biliary obstruction. No evidence of choledocholithiasis. * lazaro's criteria on admission is a 2 which is associate with 1% mortality. * Patient is on empiric antibiotic treatment for Rocephin 1 g IV piggyback daily started on October 16, 2018. * Pain as needed includes morphine 2 mg IV every 4 as needed for moderate pain * Nausea as needed Zofran 4 mg IV push every 4 as needed * Patient to remain n.p.o. 2. Transaminitis Assessment/plan * Workup noted above * Will check hepatitis panel * Improving 3. Electrolyte imbalance Assessment/plan * Replete 4. Prophylaxis * DVT prophylaxis: SCDs * GI: Protonix 40mg IV daily * NPO diet Patient is a 23-year-old female with no prior medical history. Patient is considered low risk for intermediate risk associated procedure. Surgery and anesthesia to discuss risks and benefits of procedure prior to the OR respectively. Preoperative/intraoperative/postoperative management per surgery. Disposition patient is pending lap mendoza with intraoperative cholangiogram for tomorrow. Will remain n.p.o.
[2018-10-17 08:29] LABS: INR 1.2; PROTHROMBIN TIME 13.3 SECONDS (9.7-12.2)
[2018-10-17 09:00] LABS: ALB/GLOB RATIO 1.5 (1.0-2.1); ALT/SGPT 503 U/L (9-52); AST/SGOT 144 U/L (14-36); BILIRUBIN,DIRECT 0.2 mg/dL (0.0-0.4); BLOOD UREA NITROGEN 5 mg/dL (7-17); CALCIUM 9.2 mg/dl (8.6-10.4); GFR NON-AFRICAN AMERICAN > 60
[2018-10-17 09:33] LABS: FERRITIN 8.8 ng/mL
[2018-10-17] MEDS: Magnesium Sulfate 1 gm in D5W 1 GM/100 ML BAG IVPB SCH ×2 (10:14→13:17)
[2018-10-17 10:17] LABS: LIPASE 394 U/L (23-300)
[2018-10-17] MEDS ORDERED: Magnesium Sulfate 1 gm in D5W 1 GM/100 ML BAG IVPB SCH (14:00)
--- NOTE | 2018-10-17 16:47 | MRI ---
Date of service: 10/17/2018 PROCEDURE: Magnetic Resonance Cholangiopancreatography HISTORY: COMPARISON: None available. TECHNIQUE: Multiplanar, multisequence MR images of the abdomen were obtained, including heavily T2 weighted MRCP images of the biliary system. Rotating maximum intensity projection images of the biliary system were generated. FINDINGS: MRCP: The common bile duct is of a normal caliber. No evidence of choledocholithiasis. No intrahepatic biliary ductal dilatation. LIVER: Normal size, contour and signal intensity. No mass. No intrahepatic biliary ductal dilatation. GALLBLADDER: Cholelithiasis. No mural thickening. No pericholecystic fluid. SPLEEN: Unremarkable. PANCREAS: Unremarkable. ADRENALS: Unremarkable. KIDNEYS: Unremarkable. AORTA: No aneurysm. ASCITES: None. OTHER FINDINGS: None. IMPRESSION: Cholelithiasis without evidence of cholecystitis. No evidence of biliary obstruction. No evidence of choledocholithiasis.
--- NOTE | 2018-10-17 17:02 | CP.PCM.PN ---
<Ama Gordon - Last Filed: 10/17/18 17:02> Subjective - Date & Time of Evaluation Date of Evaluation: 10/17/18 Time of Evaluation: 07:00 - Subjective Subjective: GENERAL SURGERY PROGRESS NOTE FOR DR. TRIMBLE Patient seen and examined at bedside. She reports very mild epigastric pain which is improved from before. She denies nausea or vomiting. States that she is hungry. Objective - Vital Signs/Intake and Output Vital Signs (last 24 hours): Temp Pulse Resp BP Pulse Ox 98.4 F 80 20 101/66 100 10/17/18 16:00 10/17/18 16:00 10/17/18 16:00 10/17/18 16:00 10/17/18 16:00 Intake and Output: 10/17/18 10/17/18 06:59 18:59 Intake Total 3200 1000 Balance 3200 1000 - Medications Medications: Current Medications Ceftriaxone Sodium 1 gm/ (Sodium Chloride) 100 mls @ 100 mls/hr IVPB DAILY [facility]; Protocol Last Admin: 10/17/18 11:30 Dose: 100 mls/hr Sodium Chloride (Sodium Chloride 0.9%) 1,000 mls @ 125 mls/hr IV .Q8H [facility] Last Admin: 10/17/18 13:20 Dose: Not Given Influenza Virus Vaccine (Flucelvax Quad [id number] Syr) 60 mcg IM .ONCE ONE Stop: 10/18/18 10:01 Morphine Sulfate (Morphine) 2 mg IVP Q4 PRN PRN Reason: Pain, moderate (4-7) Ondansetron HCl (Zofran Inj) 4 mg IVP Q4H PRN PRN Reason: Nausea/Vomiting Pantoprazole Sodium (Protonix Inj) 40 mg IVP DAILY [facility] Last Admin: 10/17/18 10:14 Dose: 40 mg Pneumococcal Polyvalent Vaccine (Pneumovax 23 Vaccine) 0.5 ml IM .ONCE ONE Stop: 10/18/18 10:01 - Labs Labs: 10/17/18 07:10 10/17/18 07:10 PT 13.3 SECONDS (9.7-12.2) H 10/17/18 07:10 INR 1.2 10/17/18 07:10 APTT 37 SECONDS (21-34) H 10/17/18 07:10 - Constitutional Appears: Non-toxic, No Acute Distress - Respiratory Exam Respiratory Exam: NORMAL BREATHING PATTERN. absent: Respiratory Distress - Cardiovascular Exam Cardiovascular Exam: +S1, +S2 - GI/Abdominal Exam GI & Abdominal Exam: Soft, Tenderness (mild epigastric tenderness on deep palpation only). absent: Distended, Firm, Guarding, Rigid, Rebound - Neurological Exam Neurological Exam: Alert, Awake, Oriented x3 - Psychiatric Exam Psychiatric exam: Normal Affect, Normal Mood - Skin Skin Exam: Dry, Normal Color Assessment and Plan - Assessment and Plan (Free Text) Assessment: 23yo F with gallstone pancreatitis - Afebrile, VSS - T bili WNL today, LFTs and Lipase trending down - MRCP: cholelithiasis, no choledocholithiasis - Plan for OR tomorrow for laparoscopic cholecystectomy, possible IOC - NPO - IV fluids - Discussed plan with Dr. Justin Gordon PGY-4 <Roxann Trimble - Last Filed: 10/18/18 11:26> Objective - Vital Signs/Intake and Output Vital Signs (last 24 hours): Temp Pulse Resp BP Pulse Ox 97.9 F 78 20 87/53 L 98 10/18/18 08:00 10/18/18 08:00 10/18/18 08:00 10/18/18 08:00 10/18/18 08:00 Intake and Output: 10/18/18 10/18/18 06:59 18:59 Intake Total 1999 Balance 1999 - Medications Medications: Current Medications Ceftriaxone Sodium 1 gm/ (Sodium Chloride) 100 mls @ 100 mls/hr IVPB DAILY [facility]; Protocol Last Admin: 10/18/18 11:06 Dose: Not Given Sodium Chloride (Sodium Chloride 0.9%) 1,000 mls @ 125 mls/hr IV .Q8H [facility] Last Admin: 10/18/18 11:07 Dose: Not Given Potassium Chloride (Potassium Chloride 20 Meq/100 Ml) 20 meq in 100 mls @ 50 mls/hr IVPB Q2H [facility] Stop: 10/18/18 12:59 Last Admin: 10/18/18 11:06 Dose: Not Given Potassium Chloride (Potassium Chloride 10 Meq/100 Ml) 10 meq in 100 mls @ 100 mls/hr IVPB ONCE ONE Stop: 10/18/18 13:59 Morphine Sulfate (Morphine) 2 mg IVP Q4 PRN PRN Reason: Pain, moderate (4-7) Ondansetron HCl (Zofran Inj) 4 mg IVP Q4H PRN PRN Reason: Nausea/Vomiting Pantoprazole Sodium (Protonix Inj) 40 mg IVP DAILY [facility] Last Admin: 10/18/18 09:10 Dose: 40 mg - Labs Labs: 10/18/18 07:11 10/18/18 07:11 PT 13.3 SECONDS (9.7-12.2) H 10/17/18 07:10 INR 1.2 10/17/18 07:10 APTT 37 SECONDS (21-34) H 10/17/18 07:10 Assessment and Plan - Assessment and Plan (Free Text) Plan: I personally saw and examined the patient with the resident staff and agree with the above assessment and plan. I personally reviewed the available diagnostic images and imaging reports. 23 female gallstone pancreatitis and elevated liver enzymes, s/p MRCP showing no CBD stones or obstruction, and pancreatitis now resolving. For laparoscopic cholecystectomy, possible open, possible IO cholangiogram today. We discussed the risks and benefits of the operation including, but not limited to bleeding, infection, bowel injury, bile leak, bile duct injury, and VTE. All the patients questions were answered. She understands these risks and would like to proceed with the above. Informed consent was signed.
[2018-10-17 19:09] LABS: HEPATITIS B SURFACE AG Negative (NEGATIVE)
[2018-10-17 19:15] LABS: HEPATITIS A IGM NEGATIVE (NEGATIVE); HEPATITIS B CORE AB NEGATIVE (NEGATIVE)
[2018-10-17 19:27] LABS: HEPATITIS C ANTIBODY NEGATIVE (NEGATIVE)
[2018-10-18] MEDS: Sodium Chloride 0.9% 1,000 ML IV SCH ×3 (02:32→19:27)
[2018-10-18 07:29] LABS: BASO % 0.6 % (0.0-2.0); EOS # 0.1 K/uL (0.0-0.7); EOS % 1.1 % (0.0-4.0); HEMOGLOBIN 10.5 g/dL (11.0-16.0); LYMPH # 1.7 K/uL (1.0-4.3); LYMPH % 25.6 % (20.0-40.0); MEAN CORPUSCULAR HEMOGLOBIN 24.1 pg (27.0-31.0); MEAN CORPUSCULAR HGB CONC 31.7 g/dL (33.0-37.0); MEAN PLATELET VOLUME 9.6 fL (7.2-11.7); MONO # 0.4 K/uL (0.0-0.8); MONO % 5.9 % (0.0-10.0); NEUT # 4.5 K/uL (1.8-7.0); NEUT % 66.8 % (50.0-75.0); RBC 4.35 Mil/uL (3.80-5.20); RED CELL DISTRIBUTION WIDTH 16.7 % (11.5-14.5); WHITE BLOOD COUNT 6.8 K/uL (4.8-10.8)
[2018-10-18 07:53] LABS: ALB/GLOB RATIO 1.3 (1.0-2.1); ALBUMIN 3.8 g/dL (3.5-5.0); ALT/SGPT 419 U/L (9-52); AST/SGOT 131 U/L (14-36); BLOOD UREA NITROGEN 6 mg/dL (7-17); CALCIUM 8.5 mg/dl (8.6-10.4); GFR NON-AFRICAN AMERICAN > 60
--- NOTE | 2018-10-18 07:55 | CP.PCM.PN ---
<Chanelle Hernandez V - Last Filed: 10/18/18 15:02> Objective - Vital Signs/Intake and Output Vital Signs (last 24 hours): Temp Pulse Resp BP Pulse Ox 97.9 F 78 20 87/53 L 98 10/18/18 08:00 10/18/18 08:00 10/18/18 08:00 10/18/18 08:00 10/18/18 08:00 Intake and Output: 10/18/18 10/18/18 06:59 18:59 Intake Total 1999 1050 Balance 1999 1050 - Medications Medications: Current Medications Hydromorphone HCl (Dilaudid) 0.5 mg IVP Q10M PRN PRN Reason: Pain, moderate (4-7) Stop: 10/18/18 16:20 Ceftriaxone Sodium 1 gm/ (Sodium Chloride) 100 mls @ 100 mls/hr IVPB DAILY [facility]; Protocol Last Admin: 10/18/18 11:06 Dose: Not Given Sodium Chloride (Sodium Chloride 0.9%) 1,000 mls @ 125 mls/hr IV .Q8H [facility] Last Admin: 10/18/18 11:07 Dose: Not Given Ketorolac Tromethamine (Toradol) 30 mg IVP ONCE PRN PRN Reason: Pain, Mild (1-3) Stop: 10/18/18 16:20 Metoclopramide HCl (Reglan) 10 mg IVP ONCE PRN PRN Reason: Nausea/Vomiting Stop: 10/18/18 16:20 Morphine Sulfate (Morphine) 2 mg IVP Q4 PRN PRN Reason: Pain, moderate (4-7) Ondansetron HCl (Zofran Inj) 4 mg IVP Q4H PRN PRN Reason: Nausea/Vomiting Ondansetron HCl (Zofran Inj) 4 mg IVP ONCE PRN PRN Reason: Nausea/Vomiting Stop: 10/18/18 16:20 Pantoprazole Sodium (Protonix Inj) 40 mg IVP DAILY [facility] Last Admin: 10/18/18 09:10 Dose: 40 mg - Labs Labs: 10/18/18 07:11 10/18/18 07:11 PT 13.3 SECONDS (9.7-12.2) H 10/17/18 07:10 INR 1.2 10/17/18 07:10 APTT 37 SECONDS (21-34) H 10/17/18 07:10 Attending/Attestation - Attestation I have personally seen and examined this patient.: Yes I have fully participated in the care of the patient.: Yes I have reviewed all pertinent clinical information, including history, physical exam and plan: Yes Notes (Text): This is a [id number]-old female with no prior past medical history who initially presented to the ED with worsening upper abdominal pain and associated vomiting for at least 3 days. GI and general surgery on board. On admission patient does have a significant LDH of 1500, lipase of 19,741 as well as transaminitis 618 and 958 respectively and associated elevated T bili suspected for gallstone pancreatitis. Today patient seen prior to the OR. Patient reporting symptoms are much imp roved. Patient received a potassium rider which report did did burn her since through an IV Given her potassium was mildly low at 3.5. Per review of labs liver function tests continue to improve. We will monitor the patient postop and follow-up with surgery in regards of postoperative management. 1. Gallstone pancreatitis Cholelithiasis Assessment/plan * Normal saline at 125 cc/h * General surgery on board help appreciated * Surgery is planning for lap cholecystectomy today * GI on board help appreciated * Liver function tests have significantly improved, lipase has improved * Abdominal ultrasound from October 16 impression noted cholelithiasis without sonographic evidence of cholecystitis. Noted common bile duct but 6 mm. No stones. No dilatation. * MRCP completed October 17, 2018 noted for cholelithiasis without evidence of cholecystitis. No evidence of biliary obstruction. No evidence of choledocholithiasis. * lazaro's criteria on admission is a 2 which is associate with 1% mortality. * Patient is on empiric antibiotic treatment for Rocephin 1 g IV piggyback daily started on October 16, 2018. * Pain as needed includes morphine 2 mg IV every 4 as needed for moderate pain * Nausea as needed Zofran 4 mg IV push every 4 as needed * Patient to remain n.p.o. prior to procedure 2. Transaminitis Assessment/plan * Workup noted above * Hepatitis panel was negative * Improving 3. Electrolyte imbalance Assessment/plan * Replete 4. Prophylaxis * DVT prophylaxis: SCDs * GI: Protonix 40mg IV daily * NPO diet Patient is a 23-year-old female with no prior medical history. Patient is considered low risk for intermediate risk associated procedure. Surgery and anesthesia to discuss risks and benefits of procedure prior to the OR respectively. Preoperative/intraoperative/postoperative management per surgery. Disposition patient is pending lap mendoza with possible intraoperative cholangiogram today <Lefty Ansari - Last Filed: 10/18/18 19:01> Subjective - Date & Time of Evaluation Date of Evaluation: 10/18/18 Time of Evaluation: 08:00 - Subjective Subjective: Medicine progress note for Dr. Hernandez Pt was seen and examined at bedside. Pt is resting comfortably. She reports Left flank, epigastric and left lower abdominal pain. She states that the pain is better than when she came in, but the same as yesterday. Pt denies having a bowel movement for the past 2 days, she has been passing gas. Pt is planned to have cholecystectomy this morning. Denies fever, chills, chest pain, palpitations, sob, nausea, vomiting, diarrhea, melena, hematochezia. Objective - Vital Signs/Intake and Output Vital Signs (last 24 hours): Temp Pulse Resp BP Pulse Ox 98.5 F 77 20 100/63 100 10/18/18 00:00 10/18/18 00:00 10/18/18 00:00 10/18/18 00:00 10/18/18 00:00 Intake and Output: 10/18/18 10/18/18 06:59 18:59 Intake Total 1999 Balance 1999 - Medications Medications: Current Medications Ceftriaxone Sodium 1 gm/ (Sodium Chloride) 100 mls @ 100 mls/hr IVPB DAILY [facility]; Protocol Last Admin: 10/17/18 11:30 Dose: 100 mls/hr Sodium Chloride (Sodium Chloride 0.9%) 1,000 mls @ 125 mls/hr IV .Q8H [facility] Last Admin: 10/18/18 02:32 Dose: 125 mls/hr Influenza Virus Vaccine (Flucelvax Quad [id number] Syr) 60 mcg IM .ONCE ONE Stop: 10/18/18 10:01 Morphine Sulfate (Morphine) 2 mg IVP Q4 PRN PRN Reason: Pain, moderate (4-7) Ondansetron HCl (Zofran Inj) 4 mg IVP Q4H PRN PRN Reason: Nausea/Vomiting Pantoprazole Sodium (Protonix Inj) 40 mg IVP DAILY [facility] Last Admin: 10/17/18 10:14 Dose: 40 mg Pneumococcal Polyvalent Vaccine (Pneumovax 23 Vaccine) 0.5 ml IM .ONCE ONE Stop: 10/18/18 10:01 - Labs Labs: 10/18/18 07:11 10/18/18 07:11 PT 13.3 SECONDS (9.7-12.2) H 10/17/18 07:10 INR 1.2 10/17/18 07:10 APTT 37 SECONDS (21-34) H 10/17/18 07:10 - Constitutional Appears: Non-toxic, No Acute Distress - Head Exam Head Exam: ATRAUMATIC, NORMAL INSPECTION - Eye Exam Eye Exam: EOMI, Normal appearance. absent: Scleral icterus - ENT Exam ENT Exam: Mucous Membranes Moist - Neck Exam Neck Exam: Normal Inspection - Respiratory Exam Respiratory Exam: Clear to Ausculation Bilateral. absent: Decreased Breath Sounds, Rales, Rhonchi, Wheezes, Respiratory Distress, Stridor - Cardiovascular Exam Cardiovascular Exam: REGULAR RHYTHM, +S1, +S2 - GI/Abdominal Exam GI & Abdominal Exam: Soft, Tenderness (epigastrium, LUQ, LLQ), Normal Bowel Sounds - Extremities Exam Extremities Exam: Normal Capillary Refill, Normal Inspection. absent: Calf Tenderness, Pedal Edema - Back Exam Back Exam: muscle spasm (of the left lumbar region, mild tenderness to palpation), NORMAL INSPECTION. absent: CVA tenderness (L), CVA tenderness (R) - Neurological Exam Neurological Exam: Alert, Awake, Oriented x3 - Psychiatric Exam Psychiatric exam: Normal Affect, Normal Mood - Skin Skin Exam: Dry, Normal Color, Warm Assessment and Plan - Assessment and Plan (Free Text) Assessment: 23 year old female with no medical history presenting to ED with wor sening epigastric and RUQ abdominal pain with associated nausea, vomiting x 3 days. Abdominal u/s reveals numerous gallstones, mildly dilated distal CBD. Lipase level significantly elevated. Plan: Cholelithiasis, with resolving pancreatitis LFTs, T. bili downtrending Lipase is 346, down from Abdominal US: numerous gallstones in gallbladder. Slightly prominent distal common bile duct. Surgery Dr. Yamila Anderson consulted, help appreciated Plan for surgery on 10/18/[address] Colin consulted, help appreciated NS @ 125cc/hr IV MRCP 10/17/18 shows cholelithiasis without evidence of cholecystitis. No evidence of biliary obstruction. No evidence of choledocholithiasis. Rocephin 1g IV daily Morphine 2mg Q4 PRN Zofran 4mg Q4 PRN NPO Constipation Pre-op CXR shows constipation Will add on prune juice to facilitate bowel movement post op Abnormal RBC indices LMP 10/09/18 - 3 days of bleeding, regular periods. MCV 76 MCH 23.4 MCHC 30.7 RDW 16.9 Iron, TIBC, iron % sat, ferritin are normal Continue to monitor Prophylaxis DVT: SCDs GI: Protonix 40mg IV NPO diet Dispo: Plan for OR today for laparoscopic cholecystectomy, possible IOC Case discussed with Dr. Hernandez.
[2018-10-18] MEDS ORDERED: Dextrose 50% SYRINGE Inj (50 ml) IV STA ×2 (08:44→08:48)
[2018-10-18] MEDS ORDERED: Potassium Ch 20mEq in D5W 1,000 ML IV SCH (08:45)
[2018-10-18] MEDS ORDERED: Influenza Vaccine 60 mcg/0.5 mL SYR (4YR UP) IM ONE (10:00)
[2018-10-18] MEDS ORDERED: Pneumococcal 23-Valent Vaccine IM ONE (10:00)
[2018-10-18] MEDS ORDERED: Propofol 10 mg/ml Inj (20 ML) ONE (11:44)
[2018-10-18] MEDS ORDERED: Midazolam 2 MG/2 ML VIAL ONE ×2 (11:44→14:13)
[2018-10-18] MEDS ORDERED: Iohexol 240 (50 ml) ONE (11:45)
[2018-10-18] MEDS ORDERED: Lidocaine/Epinephrine 1% 1:100000 10 ML IJ ONE (12:11)
[2018-10-18] MEDS ORDERED: Bupivacaine HCl 0.5% PF (10 ml) Inj ONE (12:12)
[2018-10-18] MEDS ORDERED: Lidocaine Hydrochloride 5 ML INJ ONE (12:27)
[2018-10-18] MEDS ORDERED: Rocuronium 10 mg/ml (10 ml) ONE (12:54)
--- NOTE | 2018-10-18 13:55 | RAD ---
Chest x-ray single frontal view HISTORY: Preadmission. COMPARISON: 10/17/2018 Findings: Mild venous congestion. Heart size within normal limits. Impression: Mild venous congestion.
[2018-10-18] MEDS ORDERED: Neostigmine 1:1000 (1 mg/ml) Inj ONE (14:18)
--- NOTE | 2018-10-18 14:19 | PCM.SURG1 ---
Surgeon's Initial Post Op Note - Surgeon's Notes Surgeon: Roxann Anderson MD Croze Cutter: Essence, PGY3. Bret Garrido MS3 Pre-Operative Diagnosis: Acute Cholecystitis Operative Findings: inflammed gallbladder Post-Operative Diagnosis: Acute Cholecystitis Operation Performed: Laparoscopic Cholecystectomy Specimen/Specimens Removed: gallbladder Estimated Blood Loss: EBL {In ML}: 30 Date of Surgery/Procedure: 10/18/18 Time of Surgery/Procedure: 12:00
[2018-10-18] MEDS: HYDROmorphone 0.5 mg/0.5 ml ISec IVP PRN ×3 (14:35→15:30)
[2018-10-18 17:17] VITALS: RESP 20
[2018-10-18 17:35] LABS: BLOOD UREA NITROGEN 3 mg/dL (7-17); CALCIUM 8.7 mg/dl (8.6-10.4); GFR NON-AFRICAN AMERICAN > 60
[2018-10-19] MEDS ORDERED: Morphine 4 MG/ML VIAL IVP PRN (00:45)
[2018-10-19] MEDS: Sodium Chloride 0.9% 1,000 ML IV SCH (06:17)
--- NOTE | 2018-10-19 07:06 | CP.PCM.DIS ---
<Lefty Ansari - Last Filed: 10/19/18 17:11> Provider - Provider Date of Admission: 10/15/18 20:49 Attending physician: Chanelle Hernandez DO Consults: 10/15/18 21:30 Gastroenterology Consult Routine Comment: Consulting Provider: Refugio Colin Consulting Physician: Refugio Colin Reason for Consult: gallstone pancreatitis 10/16/18 01:01 General Surgery Consult Routine Comment: Consulting Provider: Roxann Anderson Consulting Physician: Roxann Anderson Reason for Consult: gallstone pancreatitis Time Spent in preparation of Discharge (in minutes): 35 Diagnosis - Discharge Diagnosis (1) Pancreatitis Status: Acute (2) Cholelithiases Status: Acute Hospital Course - Lab Results Lab Results: Most Recent Lab Values WBC 6.8 K/uL (4.8-10.8) 10/18/18 07:11 RBC 4.35 Mil/uL (3.80-5.20) 10/18/18 07:11 Hgb 10.5 g/dL (11.0-16.0) L 10/18/18 07:11 Hct 33.1 % (34.0-47.0) L 10/18/18 07:11 MCV 76.0 fL (81.0-99.0) L 10/18/18 07:11 MCH 24.1 pg (27.0-31.0) L 10/18/18 07:11 MCHC 31.7 g/dL (33.0-37.0) L 10/18/18 07:11 RDW 16.7 % (11.5-14.5) H 10/18/18 07:11 Plt Count 304 K/uL (130-400) 10/18/18 07:11 MPV 9.6 fL (7.2-11.7) 10/18/18 07:11 Neut % (Auto) 66.8 % (50.0-75.0) 10/18/18 07:11 Lymph % (Auto) 25.6 % (20.0-40.0) 10/18/18 07:11 Frio % (Auto) 5.9 % (0.0-10.0) 10/18/18 07:11 Eos % (Auto) 1.1 % (0.0-4.0) 10/18/18 07:11 Baso % (Auto) 0.6 % (0.0-2.0) 10/18/18 07:11 Neut # (Auto) 4.5 K/uL (1.8-7.0) 10/18/18 07:11 Lymph # (Auto) 1.7 K/uL (1.0-4.3) 10/18/18 07:11 Frio # (Auto) 0.4 K/uL (0.0-0.8) 10/18/18 07:11 Eos # (Auto) 0.1 K/uL (0.0-0.7) 10/18/18 07:11 Baso # (Auto) 0.0 K/uL (0.0-0.2) 10/18/18 07:11 PT 13.3 SECONDS (9.7-12.2) H 10/17/18 07:10 INR 1.2 10/17/18 07:10 APTT 37 SECONDS (21-34) H 10/17/18 07:10 Sodium 137 mmol/L (132-148) 10/18/18 16:59 Potassium 4.1 mmol/L (3.6-5.2) 10/18/18 16:59 Chloride 105 mmol/L (98-107) 10/18/18 16:59 Carbon Dioxide 18 mmol/L (22-30) L 10/18/18 16:59 Anion Gap 18 (10-20) 10/18/18 16:59 BUN 3 mg/dL (7-17) L 10/18/18 16:59 Creatinine 0.4 mg/dL (0.7-1.2) L 10/18/18 16:59 Est GFR ( Amer) > 60 10/18/18 16:59 Est GFR (Non-Af Amer) > 60 10/18/18 16:59 Random Glucose 105 mg/dL (65-105) D 10/18/18 16:59 Calcium 8.7 mg/dl (8.6-10.4) 10/18/18 16:59 Phosphorus 3.4 mg/dL (2.5-4.5) 10/18/18 07:11 Magnesium 1.7 mg/dL (1.6-2.3) 10/18/18 07:11 Iron 92 ug/dL (37-170) 10/17/18 07:10 TIBC 434 ug/dL (250-450) 10/17/18 07:10 % Saturation 21 (20-55) 10/17/18 07:10 Ferritin 8.8 ng/mL 10/17/18 07:10 Total Bilirubin 0.7 mg/dL (0.2-1.3) 10/18/18 07:11 Direct Bilirubin 0.0 mg/dL (0.0-0.4) 10/18/18 07:11 AST 131 U/L (14-36) H 10/18/18 07:11 ALT 419 U/L (9-52) H 10/18/18 07:11 Alkaline Phosphatase 146 U/L (38-126) H 10/18/18 07:11 Lactate Dehydrogenase 1500 U/L (313-618) H 10/15/18 21:33 Total Protein 6.8 g/dL (6.3-8.3) 10/18/18 07:11 Albumin 3.8 g/dL (3.5-5.0) 10/18/18 07:11 Globulin 2.9 gm/dL (2.2-3.9) 10/18/18 07:11 Albumin/Globulin Ratio 1.3 (1.0-2.1) 10/18/18 07:11 Lipase 394 U/L (23-300) H 10/17/18 07:10 Urine Color Yellow (YELLOW) 10/15/18 17:24 Urine Clarity Hazy (Clear) 10/15/18 17:24 Urine pH 6.0 (5.0-8.0) 10/15/18 17:24 Ur Specific [place] 1.001 (1.003-1.030) L 10/15/18 17:24 Urine Protein Negative mg/dL (NEGATIVE) 10/15/18 17:24 Urine Glucose (UA) Normal mg/dL (Normal) 10/15/18 17:24 Urine Ketones Negative mg/dL (NEGATIVE) 10/15/18 17:24 Urine Blood Negative (NEGATIVE) 10/15/18 17:24 Urine Nitrate Negative (NEGATIVE) 10/15/18 17:24 Urine Bilirubin Negative (NEGATIVE) 10/15/18 17:24 Urine Urobilinogen Normal mg/dL (0.2-1.0) 10/15/18 17:24 Ur Leukocyte Esterase 1+ Genia/uL (Negative) H 10/15/18 17:24 Urine WBC (Auto) 5 /hpf (0-5) 10/15/18 17:24 Urine RBC (Auto) 1 /hpf (0-3) 10/15/18 17:24 Ur Squamous Epith Cells 2 /hpf (0-5) 10/15/18 17:24 Urine Bacteria Few (<OCC) H 10/15/18 17:24 Urine HCG, Qual Negative (NEGATIVE) 10/18/18 07:34 Hepatitis A IgM Ab Negative (NEGATIVE) 10/17/18 18:25 Hep Bs Antigen Negative (NEGATIVE) 10/17/18 18:25 Hep B Core IgM Ab Negative (NEGATIVE) 10/17/18 18:25 Hepatitis C Antibody Negative (NEGATIVE) 10/17/18 18:25 - Hospital Course Hospital Course: On admission: 23 year old F with no PMHx presenting to ED with worsening epigastric and RUQ abdominal pain with associated n/v x 3 days. Abdominal u/s reveals nume sheldon gallstones, mildly dilated distal CBD. Lipase level signficantly elevated. Hospital course: LFTs were elevated, lipase was elevated. Surgery was consulted. GI was consulted due to pancreatitis with cholithiasis. Pt started on antibiotics. Lipase improved and pt was requesting food, but kept NPO due to surgery. Abdominal US: numerous gallstones in gallbladder. Slightly prominent distal common bile duct. MRCP 10/17/18 shows cholelithiasis without evidence of cholecystitis. No evidence of biliary obstruction. No evidence of choledocholithiasis. Pancreas was unremar kable in all imaging. Pt underwent lap cholecystectomy 10/18, without any complications. On discharge interview, pt reports improvement of pain, she is tolerating PO and has had a normal bowel movement. She is ambulating without significant difficulty, and is using the incentive spirometer appropriately. This is a summary of the hospital course. Please see EMR for full details. Discharge Exam - Head Exam Head Exam: ATRAUMATIC, NORMAL INSPECTION - Eye Exam Eye Exam: EOMI, Normal appearance - ENT Exam ENT Exam: Mucous Membranes Moist - Respiratory Exam Respiratory Exam: Clear to PA & Lateral, UNREMARKABLE. absent: Rales, Rhonchi - Cardiovascular Exam Cardiovascular Exam: REGULAR RHYTHM, +S1, +S2 - GI/Abdominal Exam GI & Abdominal Exam: Normal Bowel Sounds, Soft, Tenderness (minimal diffuse tenderness). absent: Distended, Firm, Guarding, Hernia, Rebound, Rigid - Extremities Exam Extremities exam: normal inspection, pedal pulses present - Back Exam Back exam: NORMAL INSPECTION. absent: CVA tenderness (L), CVA tenderness (R) - Neurological Exam Neurological exam: Alert, Oriented x3 - Psychiatric Exam Psychiatric exam: Normal Affect, Normal Mood - Skin Skin Exam: Dry, Normal Color, Warm - Additional Findings Additional findings: trocar insertion sites are clean dry and intact, no signs of infection, bleeding Discharge Plan - Discharge Medications Prescriptions: RX: Ibuprofen [Motrin Tab] 600 mg PO BID PRN #28 tab PRN Reason: Pain, Moderate (4-7) RX: Sennosides/Docusate Sodium [Colace 2-in-1 Tablet] 1 each PO BID PRN 14 Days #28 tablet PRN Reason: Constipation - Follow Up Plan Condition: STABLE Disposition: HOME/ ROUTINE Instructions: Pancreatitis (DC), Cholecystectomy (DC), Cholecystitis (DC), Acute Abdominal Pain (DC) Additional Instructions: Pt is medically stable for discharge home as per Dr. Hernandez. Pt should take Motrin 600 mg PO BID as needed for pain. Pt should drink plenty of fluids and avoid immobility to increase bowel movement. Pt instructed in using the incentive spirometer. Pt should take colace twice a day as needed for constipation. Pt should follow up with surgery, Dr. Anderson, in 2 weeks. Pt should see her PMD within 2 weeks of discharge for follow up. [facility], call for appointment. Should you develop fever, chills, chest pain, shortness of breath, worsening of abdominal pain, please head to the nearest Emergency Department for further evaluation. Instructions explained to pt and family, who understand and agree with discharge plan. Referrals: Roxann Anderson MD [Staff Provider] - [facility] at [facility] [Outside] <Chanelle Hernandez V - Last Filed: 10/19/18 23:27> Provider - Provider Date of Admission: 10/15/18 20:49 Attending physician: Chanelle Hernandez DO Consults: 10/15/18 21:30 Gastroenterology Consult Routine Comment: Consulting Provider: Refugio Colin Consulting Physician: Refugio Colin Reason for Consult: gallstone pancreatitis 10/16/18 01:01 General Surgery Consult Routine Comment: Consulting Provider: Roxann Anderson Consulting Physician: Roxann Anderson Reason for Consult: gallstone pancreatitis Diagnosis - Discharge Diagnosis (1) Gallstone pancreatitis Status: Resolved (2) Cholelithiases Status: Chronic (3) Status post cholecystectomy Status: Acute (4) Transaminitis Status: Resolved Hospital Course - Lab Results Lab Results: Most Recent Lab Values WBC 6.8 K/uL (4.8-10.8) 10/18/18 07:11 RBC 4.35 Mil/uL (3.80-5.20) 10/18/18 07:11 Hgb 10.5 g/dL (11.0-16.0) L 10/18/18 07:11 Hct 33.1 % (34.0-47.0) L 10/18/18 07:11 MCV 76.0 fL (81.0-99.0) L 10/18/18 07:11 MCH 24.1 pg (27.0-31.0) L 10/18/18 07:11 MCHC 31.7 g/dL (33.0-37.0) L 10/18/18 07:11 RDW 16.7 % (11.5-14.5) H 10/18/18 07:11 Plt Count 304 K/uL (130-400) 10/18/18 07:11 MPV 9.6 fL (7.2-11.7) 10/18/18 07:11 Neut % (Auto) 66.8 % (50.0-75.0) 10/18/18 07:11 Lymph % (Auto) 25.6 % (20.0-40.0) 10/18/18 07:11 Frio % (Auto) 5.9 % (0.0-10.0) 10/18/18 07:11 Eos % (Auto) 1.1 % (0.0-4.0) 10/18/18 07:11 Baso % (Auto) 0.6 % (0.0-2.0) 10/18/18 07:11 Neut # (Auto) 4.5 K/uL (1.8-7.0) 10/18/18 07:11 Lymph # (Auto) 1.7 K/uL (1.0-4.3) 10/18/18 07:11 Frio # (Auto) 0.4 K/uL (0.0-0.8) 10/18/18 07:11 Eos # (Auto) 0.1 K/uL (0.0-0.7) 10/18/18 07:11 Baso # (Auto) 0.0 K/uL (0.0-0.2) 10/18/18 07:11 PT 13.3 SECONDS (9.7-12.2) H 10/17/18 07:10 INR 1.2 10/17/18 07:10 APTT 37 SECONDS (21-34) H 10/17/18 07:10 Sodium 133 mmol/L (132-148) 10/19/18 06:46 Potassium 3.3 mmol/L (3.6-5.2) L 10/19/18 06:46 Chloride 99 mmol/L (98-107) 10/19/18 06:46 Carbon Dioxide 22 mmol/L (22-30) 10/19/18 06:46 Anion Gap 15 (10-20) 10/19/18 06:46 BUN 2 mg/dL (7-17) L 10/19/18 06:46 Creatinine 0.4 mg/dL (0.7-1.2) L 10/19/18 06:46 Est GFR ( Amer) > 60 10/19/18 06:46 Est GFR (Non-Af Amer) > 60 10/19/18 06:46 Random Glucose 88 mg/dL (65-105) 10/19/18 06:46 Calcium 8.9 mg/dl (8.6-10.4) 10/19/18 06:46 Phosphorus 3.1 mg/dL (2.5-4.5) 10/19/18 06:46 Magnesium 1.4 mg/dL (1.6-2.3) L 10/19/18 06:46 Iron 92 ug/dL (37-170) 10/17/18 07:10 TIBC 434 ug/dL (250-450) 10/17/18 07:10 % Saturation 21 (20-55) 10/17/18 07:10 Ferritin 8.8 ng/mL 10/17/18 07:10 Total Bilirubin 0.9 mg/dL (0.2-1.3) 10/19/18 06:46 Direct Bilirubin 0.0 mg/dL (0.0-0.4) 10/18/18 07:11 AST 158 U/L (14-36) H D 10/19/18 06:46 ALT 396 U/L (9-52) H 10/19/18 06:46 Alkaline Phosphatase 132 U/L (38-126) H 10/19/18 06:46 Lactate Dehydrogenase 1500 U/L (313-618) H 10/15/18 21:33 Total Protein 6.9 g/dL (6.3-8.3) 10/19/18 06:46 Albumin 3.9 g/dL (3.5-5.0) 10/19/18 06:46 Globulin 3.0 gm/dL (2.2-3.9) 10/19/18 06:46 Albumin/Globulin Ratio 1.3 (1.0-2.1) 10/19/18 06:46 Lipase 394 U/L (23-300) H 10/17/18 07:10 Urine Color Yellow (YELLOW) 10/15/18 17:24 Urine Clarity Hazy (Clear) 10/15/18 17:24 Urine pH 6.0 (5.0-8.0) 10/15/18 17:24 Ur Specific [place] 1.001 (1.003-1.030) L 10/15/18 17:24 Urine Protein Negative mg/dL (NEGATIVE) 10/15/18 17:24 Urine Glucose (UA) Normal mg/dL (Normal) 10/15/18 17:24 Urine Ketones Negative mg/dL (NEGATIVE) 10/15/18 17:24 Urine Blood Negative (NEGATIVE) 10/15/18 17:24 Urine Nitrate Negative (NEGATIVE) 10/15/18 17:24 Urine Bilirubin Negative (NEGATIVE) 10/15/18 17:24 Urine Urobilinogen Normal mg/dL (0.2-1.0) 10/15/18 17:24 Ur Leukocyte Esterase 1+ Genia/uL (Negative) H 10/15/18 17:24 Urine WBC (Auto) 5 /hpf (0-5) 10/15/18 17:24 Urine RBC (Auto) 1 /hpf (0-3) 10/15/18 17:24 Ur Squamous Epith Cells 2 /hpf (0-5) 10/15/18 17:24 Urine Bacteria Few (<OCC) H 10/15/18 17:24 Urine HCG, Qual Negative (NEGATIVE) 10/18/18 07:34 Hepatitis A IgM Ab Negative (NEGATIVE) 10/17/18 18:25 Hep Bs Antigen Negative (NEGATIVE) 10/17/18 18:25 Hep B Core IgM Ab Negative (NEGATIVE) 10/17/18 18:25 Hepatitis C Antibody Negative (NEGATIVE) 10/17/18 18:25 Discharge Exam - Respiratory Exam Respiratory Exam: NORMAL BREATHING PATTERN - Skin Additional comments: some mild erythema non-itchy likely secondary to Dermabond underneath the umbilicus patient has 2 trocar sites or the abdomen Above the umbilicus as well as right upper quadrant which are clean and intacterythema no discharge noted Attending/Attestation - Attestation I have personally seen and examined this patient.: Yes I have fully participated in the care of the patient.: Yes I have reviewed all pertinent clinical information, including history, physical exam and plan: Yes Notes (Text): Patient underwent cholecystectomy yesterday. Patient is postoperative day 1. Patient will reports mild abdominal distention has received a small dose of morphine 2 mg IV earlier this morning patient seen with mother and aunt at bedside. Patient encouraged to walk around to reduce abdominal distention patient with a dose of Senokot patient did have a bowel movement later today and encouraged to drink the juice as well to relieve constipation. I did speak with mother at bedside noted that patient does have mildly elevated liver numbers which are slowly downtrending advised not to take Tylenol at this time until liver numbers have normalized. Advised Motrin as needed severe pain to reduce inflammation. I also did indicate to to mother and patient that if there is any worsening any abdominal pain any fever in the next couple days to come back immediately for evaluation. Potassium and magnesium repleted prior to discharge. Patient recommended to establish care at the [facility]. Patient will also need follow-up with Dr. Wil Anderson in the surgery clinic to follow-up for postoperative follow-up. Patient recommended to have repeat liver function test mentioned be of normalized post procedure. Patient advised her as needed Motrin and stool softener to improve her constipation as well as prune juice as well. Patient has very strong family support and both mother and aunt are at bedside understand discharge instructions. This is a brief summary of patient's hospitalization please refer to EMR for full details record thank you Discharge diagnoses: 1. Gallstone pancreatitis Cholelithiasis Assessment/plan * General surgery on board help appreciated * GI on board help appreciated * Liver function tests have significantly improved, lipase has improved * Abdominal ultrasound from October 16 impression noted cholelithiasis without sonographic evidence of cholecystitis. Noted common bile duct but 6 mm. No stones. No dilatation. * MRCP completed October 17, 2018 noted for cholelithiasis without evidence of cholecystitis. No evidence of biliary obstruction. No evidence of choledocholithiasis. * Completed lap mendoza patient is postoperative day 4. Per surgery patient is stable for discharge. Follow-up with Dr. Roxann Anderson in the surgery clinic. 2. Transaminitis Assessment/plan * Workup noted above * Hepatitis panel was negative * Improving 3. Electrolyte imbalance Assessment/plan * Replete
[2018-10-19 07:31] LABS: ALB/GLOB RATIO 1.3 (1.0-2.1); ALBUMIN 3.9 g/dL (3.5-5.0); ALT/SGPT 396 U/L (9-52); AST/SGOT 158 U/L (14-36); BLOOD UREA NITROGEN 2 mg/dL (7-17); CALCIUM 8.9 mg/dl (8.6-10.4); GFR NON-AFRICAN AMERICAN > 60
[2018-10-19 07:47] VITALS: TEMP 97.8
[2018-10-19] MEDS ORDERED: Potassium Chloride 20 mEq ER Tab PO ONE (09:29)
[2018-10-19] MEDS ORDERED: Magnesium Oxide 400 mg Tab UD PO SCH (10:00)
[2018-10-19] MEDS ORDERED: Oxycodone/Acetaminophen 5/325 mg Tab PO PRN (11:11)
[2018-10-19] MEDS ORDERED: Magnesium Sulfate 1 gm in D5W 1 GM/100 ML BAG IVPB ONE (11:15)
[2018-10-19] MEDS ORDERED: oxyCODONE 5 mg Immediate Release Tab PO PRN (11:44)
[2018-10-19] MEDS ORDERED: Docusate-Senna 50 mg-8.6 mg Tab PO ONE (11:47)
[2018-10-19 16:52] VITALS: BP 93/65; PULSE 61; O2SAT 97
--- NOTE | 2018-10-19 23:57 | CP.PCM.PN ---
Subjective - Date & Time of Evaluation Date of Evaluation: 10/19/18 Time of Evaluation: 09:00 - Subjective Subjective: GENERAL SURGERY PROGRESS NOTE FOR DR. TRIMBLE Patient seen and examined at bedside. She reports very mild avinash-incisional pain which is controlled with pain medication. She denies nausea or vomiting. She is tolerating diet and ambulating to the bathroom. Objective - Vital Signs/Intake and Output Vital Signs (last 24 hours): Temp Pulse Resp BP Pulse Ox 97.8 F 61 20 93/65 L 97 10/19/18 16:00 10/19/18 16:00 10/19/18 16:00 10/19/18 16:00 10/19/18 16:00 Intake and Output: 10/19/18 10/20/18 18:59 06:59 Intake Total 1400 Balance 1400 - Labs Labs: 10/18/18 07:11 10/19/18 06:46 PT 13.3 SECONDS (9.7-12.2) H 10/17/18 07:10 INR 1.2 10/17/18 07:10 APTT 37 SECONDS (21-34) H 10/17/18 07:10 - Constitutional Appears: Non-toxic, No Acute Distress - Respiratory Exam Respiratory Exam: NORMAL BREATHING PATTERN. absent: Respiratory Distress - Cardiovascular Exam Cardiovascular Exam: +S1, +S2 - GI/Abdominal Exam GI & Abdominal Exam: Soft, Tenderness (avinash-incisional). absent: Distended, Firm, Guarding, Rigid, Rebound Additional comments: Dressings clean/dry/intact - Neurological Exam Neurological Exam: Alert, Awake, Oriented x3 - Psychiatric Exam Psychiatric exam: Normal Affect, Normal Mood - Skin Skin Exam: Dry, Normal Color Assessment and Plan - Assessment and Plan (Free Text) Assessment: 23yo F with gallstone pancreatitis s/p lap cholecystectomy POD#1 - Tolerating diet, pain well controlled, ambulating - Clear for discharge home from surgical standpoint - Follow up with Dr. Trimble in his office, call to make appointment - Discussed plan with Dr. Justin Gordon PGY-4
--- NOTE | 2018-10-21 12:55 | PCM.OP ---
Operative Report - Operative Report Date of Surgery/Procedure: 11/15/18 Time of Surgery/Procedure: 12:00 Surgeon: Roxann Anderson MD Income Tax Preparer: Cornelius John DO (PGY 3 resident) Anesthesia/Sedation: See main Pre-Operative Diagnosis: See main Post-Operative Diagnosis: See main Indication for Surgery: Gallstone pancreatitis Operative Findings: See main Procedure/Operation Description: ANESTHESIA: General endotracheal; 1% lidocaine + 0.25% Marcaine mix local anesthesia PRE-OPERATIVE DIAGNOSIS: symptomatic cholelithiasis, gallstone pancreatitis POSTOPERATIVE DIAGNOSIS: Same Indications: This is a 23-year-old female presented to ED with RUQ and epigastric pain due to cholelithiasis and gallstone pancreatit siwth elevated lipase and LFT's; with CT evidence of large dilated, fluid filled gallbladder and wall thickening and inflammation; RUQ US showed a multiple gallstones. MRCP done few days after admission did not show any retained CBD stones or ductal dilation. Once the patient's enzymes had normalized she was taken for laparoscopic cholecystectomy. Details of HPI in clinical chart. Taken to the operating room for laparoscopic cholecystectomy. Patient understands the risks and benefits of the procedure as documented in the clinic chart but specifically risk of cystic duct leak and common bile duct injury, need for open surgery and has consented to the procedure. OPERATIVE FINDINGS: Significant inflammation in right upper quadrant with adhesions gallbladder to omentum; Dilated, Fluid filled gallbladder with multiple stones. Clips in place on cystic duct and cystic artery at end of case without evidence of bleeding or bile leak. PROCEDURES PERFORMED: 1) Laparoscopic Cholecystectomy DESCRIPTION OF PROCEDURE: The patient was given a preoperative dose of Zosyn 20 minutes before the incision. SCD boots were placed for DVT prophylaxis. The patient had an orogastric tube placed in order to empty the stomach after the induction of general anesthesia. Upper and lower body warmer placed to maintain normothermia. Secure straps placed above and bleow the knees and footboard placed. Arms placed on arm boards out at 80 degress. All bony prominences were padded. A timeout was performed prior to incision. The abdomen was prepped and draped in sterile fashion. All skin incisions were made using an 11 blade scalpel after being pre-anesthetized with local anesthesia. In the infraaumbilical midline, a circumlinear incision was made and the umbilical raphe was identified and the fascia was divided between clamps at its base entering the abdomen in an open fashion. A 11-mm trocar was inserted in the abdomen and the abdomen was insufflated to 15 mmHg pressure with CO2. A 30- degree viewing scope was then inserted and the abdomen was generally inspected and there was not found to be any additional signs of pathology. In the right upper quadrant, two 5-mm ports were placed after the under direct vision and in the subxiphoid midline, an 11-mm radially dilating port was placed in the similar fashion. There was significant inflammation in the right upper abdomen and a large dilated gallbladder fundus was identified beneath the liver edge. A laparoscopic aspiration needle was inserted into the fundus and used to aspirate 30cc of bilious fluid for decompression and allow grasping and retraction. The fundus of the gallbladder was then retracted to the right upper quadrant and the neck of the gallbladder was visualized. There were omental adhesions to the gallbladder that were taken down with a cominbation of sharp dissection and hook cautery. The peritoneal attachments from the lateral portion of the gallbladder /cystic duct junction were gently dissected and divided to open up the [place]. The [place] was then dissected up onto the liver bed posterior to the gallbladder in order to ensure that this was the cystic duct and not tenting of the common bile duct. The peritoneal attachments on the medial portion of the gallbladder going up to the side of the liver were taken and distal third of gallbladder dissected off the cystic plate. The critical view was obtained. The cystic artery and duct were sequentially then doubly clipped and ligated and the clips were inspected. Once this was completed, the gallbladder was dissected free from the liver bed using electrocautery and placed this in an endo catch bag. This was withdrawn through the umbilical port. The abdomen was reinspected. The clips were in good position on the cystic artery and duct stumps and the abdomen was generally irrigated and drained. The ports were then removed from the abdomen and the abdomen was desufflated with air. The umbilical port was closed with [id number] 0- Vicryl suture 2, skin incisions closed with 4-0 Vicryl sutures, and finally dermabond applied to skin. The patient tolerated the procedure well and was extubated and stable in recovery after the procedure. I was present throughout the entirety of the procedure. Sponge, needle and instrument counts were correct. Estimated Blood Loss: 20mL Complications: none Specimen: Gallbladder and cystic node Discharge & Condition: See main
--- NOTE | 2018-10-23 08:39 | CARD ---
APPROVED REPORT Date of service: 10/17/2018 EKG Measurement Heart [id number] MD [id number] <Conclusion> Normal sinus rhythm Normal ECG
== END 2018-10-19 17:46 | disposition home or self-care (01) | DRG 263 ==
LOC: C.ER 16:21 → C.9E 20:49 → C.3T 21:10
PROVIDERS: ADMIT Hospitalist; ATTEND Hospitalist
PROC: 0FT44ZZ Resection of Gallbladder, Percutaneous Endoscopic Approach (ICD-10-PCS; principal; 2018-10-18 10:30)
DX: K80.12 Calculus of gallbladder with acute and chronic cholecystitis without obstruction (principal); K85.10 Biliary acute pancreatitis without necrosis or infection; K59.00 Constipation, unspecified